=== PATIENT | female | born 1985 | race African-American/Black ===

== ENCOUNTER 2017-08-31 09:11 | Emergency (ER) | payer MEDICARE ==
[~2017-08-31] VITALS: Ht 157.5 cm; Wt 103.0 kg
[~2017-08-31 09:11] MED LIST: ALBU8I INH; ALBUAER3 INH; AZIT250T3 PO; BENZ100 PO; PRED20 PO
[2017-08-31 09:13] VITALS: BP 148/83; PULSE 94; RESP 16; TEMP 98.6; O2SAT 94
[2017-08-31] MEDS ORDERED: SODIUM CHLOR 0.9% 1000 ML INJ 1,000 ML IV ONE (09:30)
[2017-08-31] MEDS ORDERED: methylPREDNISolone SOD SUCC 125 MG/2 ML VIAL IV PUSH ONE (09:30)
[2017-08-31] MEDS ORDERED: SODIUM CHLORIDE 0.9% FLUSH 10 ML FLUSH IVF PRN (09:30)
[2017-08-31 09:33] VITALS: BP 155/85; PULSE 106; RESP 20; TEMP 98.6; O2SAT 97
[2017-08-31 09:36] VITALS: RESP 20; O2SAT 96
--- NOTE | 2017-08-31 09:39 | PD ---
HPI Chief Complaint: Respiratory Distress Time Seen by Provider: 09:28 Travel History International Travel<30 days: No Contact w/Intl Traveler<30days: No Traveled to known affect area: No History of Present Illness HPI Patient is a 31-year-old female presents to emergency room with complaints of asthma exacerbation. Patient reports that that she began wheezing and coughing this weekend. Patient reports that when she coughs, she is bringing up thick phlegm. Patient reports that she has not been having any fevers or chills. Patient reports no sick contacts. Patient reports that changes of weather usually brings on her asthma exacerbation. Patient reports that she has never been intubated for asthma exacerbation, she was hospitalized last year for this. Reports that she tried using nebulizer treatments at home with no relief of symptoms. PFSH Past Medical History Anemia: Yes Asthma: Yes Blood Disorders: No Anxiety: Yes Depression: Yes Cancer: No Cardiovascular Problems: No Chemotherapy: No Diminished Hearing: No Endocrine: No Gastrointestinal Disorders: No Genitourinary: No Immune Disorder: No Musculoskeletal: Yes Neurologic: No Psychiatric: Yes Reproductive: No Respiratory: No Radiation Therapy: No ?: Not : 6 Para: 6 Miscarriage: 0 : 0 Past Surgical History AICD: No Arteriovenous Shunt: No Section: Yes Gynecologic Surgery: Yes (C SECTION) Insulin Pump: No Joint Replacement: No Pacemaker: No Other Surgery: No Social History Alcohol Use: No Tobacco Use: No Substance Use: No Allergies-Medications (Allergen,Severity, Reaction): Coded Allergies: No Known Allergies (Verified , 08/31/17) Reported Meds & Prescriptions Reported Meds & Active Scripts Active Proair Hfa 8.5 GM Inh (Albuterol Sulfate) 90 Mcg/Act Aer 2 Puff INH Q6H PRN 108 mcg/actuation Review of Systems General / Constitutional: No: Fever Eyes: No: Visual changes HENT: No: Headaches Cardiovascular: No: Chest Pain or Discomfort Respiratory: Positive: Cough, Shortness of Breath, Wheezing Gastrointestinal: No: Abdominal Pain Genitourinary: No: Dysuria Musculoskeletal: No: Pain Skin: No Rash Neurologic: No: Weakness Psychiatric: No: Depression Endocrine: No: Polydipsia Hematologic/Lymphatic: No: Easy Bruising Physical Exam Narrative GENERAL: mild distress SKIN: Focused skin assessment warm/dry. HEAD: Atraumatic. Normocephalic. EYES: Pupils equal and round. No scleral icterus. No injection or drainage. ENT: No nasal bleeding or discharge. Mucous membranes pink and moist. NECK: Trachea midline. No JVD. CARDIOVASCULAR: Regular rate and rhythm. No murmur appreciated. RESPIRATORY: No accessory muscle use. patient with scattered wheezing diffusely GASTROINTESTINAL: Abdomen soft, non-tender, nondistended. Hepatic and splenic margins not palpable. MUSCULOSKELETAL: No obvious deformities. No clubbing. No cyanosis. No edema. NEUROLOGICAL: Awake and alert. No obvious cranial nerve deficits. Motor grossly within normal limits. Normal speech. PSYCHIATRIC: Appropriate mood and affect; insight and judgment normal. Data Data Last Documented VS Vital Signs Date Time Temp Pulse Resp B/P (MAP) Pulse Ox O2 Delivery O2 Flow Rate FiO2 08/31/17 10:03 98 128/82 (97) 08/31/17 09:38 96 Room Air 08/31/17 09:36 20 08/31/17 09:33 98.6 Orders Orders Basic Metabolic Panel (Bmp) (08/31/17 09:30) Complete Blood Count With Diff (08/31/17 09:30) Chest, Single Ap (08/31/17 09:30) Ecg Monitoring (08/31/17 09:30) Iv Access Insert/Monitor (08/31/17 09:30) Oximetry (08/31/17 09:30) Methylprednisolone So Succ Inj (Solumedr (08/31/17 09:30) Albuterol-Ipratropium Neb (Duoneb Neb) (08/31/17 09:30) Sodium Chloride 0.9% Flush (Ns Flush) (08/31/17 09:30) Ed Urine Pregnancytest Poc (08/31/17 09:30) Sodium Chlor 0.9% 1000 Ml Inj (Ns 1000 M (08/31/17 09:30) Magnesium Sulfate 1 Gm Premix (Magnesium (08/31/17 09:30) Electrocardiogram (08/31/17 ) Labs Laboratory Tests Test 08/31/17 09:58 White Blood Count 5.8 TH/MM3 Red Blood Count 4.15 MIL/MM3 Hemoglobin 12.7 GM/DL Hematocrit 37.7 % Mean Corpuscular Volume 90.9 FL Mean Corpuscular Hemoglobin 30.7 PG Mean Corpuscular Hemoglobin Concent 33.7 % Red Cell Distribution Width 13.3 % Platelet Count 305 TH/MM3 Mean Platelet Volume 7.6 FL Neutrophils (%) (Auto) 56.0 % Lymphocytes (%) (Auto) 23.9 % Monocytes (%) (Auto) 7.2 % Eosinophils (%) (Auto) 12.2 % Basophils (%) (Auto) 0.7 % Neutrophils # (Auto) 3.3 TH/MM3 Lymphocytes # (Auto) 1.4 TH/MM3 Monocytes # (Auto) 0.4 TH/MM3 Eosinophils # (Auto) 0.7 TH/MM3 Basophils # (Auto) 0.0 TH/MM3 CBC Comment DIFF FINAL Differential Comment Blood Urea Nitrogen 13 MG/DL Creatinine 0.74 MG/DL Random Glucose 92 MG/DL Calcium Level 9.0 MG/DL Sodium Level 139 MEQ/L Potassium Level 4.3 MEQ/L Chloride Level 107 MEQ/L Carbon Dioxide Level 24.5 MEQ/L Anion Gap 8 MEQ/L Estimat Glomerular Filtration Rate 111 ML/MIN [facility] Medical Decision Making Medical Screen Exam Complete: Yes Emergency Medical Condition: Yes Medical Record Reviewed: Yes Interpretation(s) EKG at 1004: NSR at 96bpm, qt/qtc: 336/389, no acute st or t wave changes Vital Signs Date Time Temp Pulse Resp B/P (MAP) Pulse Ox O2 Delivery O2 Flow Rate FiO2 08/31/17 09:33 98.6 106 20 155/85 (108) 97 Room Air 08/31/17 09:30 (104) 08/31/17 09:13 98.6 94 16 148/83 (104) 94 Differential Diagnosis Differential includes asthma exacerbation, pneumonia, pneumothorax Narrative Course 31-year-old female presents to emergency room with complaints of exacerbation of asthma, patient reports that symptoms began this weekend with cough and wheezing. She has tried using albuterol treatments at home with no relief of symptoms. Patient presents to emergency room with diffuse wheezing on exam. Vital Signs Date Time Temp Pulse Resp B/P (MAP) Pulse Ox O2 Delivery O2 Flow Rate FiO2 08/31/17 09:33 98.6 106 20 155/85 (108) 97 Room Air 08/31/17 09:30 (104) 08/31/17 09:13 98.6 94 16 148/83 (104) 94 IV steroids as well as IV magnesium, DuoNeb treatments ordered. X-ray of the chest ordered to evaluate for possible pneumonia vs pneumothorax Vital Signs Date Time Temp Pulse Resp B/P (MAP) Pulse Ox O2 Delivery O2 Flow Rate FiO2 08/31/17 10:03 98 128/82 (97) 08/31/17 09:38 96 Room Air 08/31/17 09:36 20 96 Room Air 08/31/17 09:33 98.6 106 20 155/85 (108) 97 Room Air 08/31/17 09:30 (104) 08/31/17 09:13 98.6 94 16 148/83 (104) 94 Laboratory Tests Test 08/31/17 09:58 White Blood Count 5.8 TH/MM3 (4.0-11.0) Red Blood Count 4.15 MIL/MM3 (4.00-5.30) Hemoglobin 12.7 GM/DL (11.6-15.3) Hematocrit 37.7 % (35.0-46.0) Mean Corpuscular Volume 90.9 FL (80.0-100.0) Mean Corpuscular Hemoglobin 30.7 PG (27.0-34.0) Mean Corpuscular Hemoglobin Concent 33.7 % (32.0-36.0) Red Cell Distribution Width 13.3 % (11.6-17.2) Platelet Count 305 TH/MM3 (150-450) Mean Platelet Volume 7.6 FL (7.0-11.0) Neutrophils (%) (Auto) 56.0 % (16.0-70.0) Lymphocytes (%) (Auto) 23.9 % (9.0-44.0) Monocytes (%) (Auto) 7.2 % (0.0-8.0) Eosinophils (%) (Auto) 12.2 % (0.0-4.0) Basophils (%) (Auto) 0.7 % (0.0-2.0) Neutrophils # (Auto) 3.3 TH/MM3 (1.8-7.7) Lymphocytes # (Auto) 1.4 TH/MM3 (1.0-4.8) Monocytes # (Auto) 0.4 TH/MM3 (0-0.9) Eosinophils # (Auto) 0.7 TH/MM3 (0-0.4) Basophils # (Auto) 0.0 TH/MM3 (0-0.2) CBC Comment DIFF FINAL Differential Comment Blood Urea Nitrogen 13 MG/DL (7-18) Creatinine 0.74 MG/DL (0.50-1.00) Random Glucose 92 MG/DL (74-106) Calcium Level 9.0 MG/DL (8.5-10.1) Sodium Level 139 MEQ/L (136-145) Potassium Level 4.3 MEQ/L (3.5-5.1) Chloride Level 107 MEQ/L (98-107) Carbon Dioxide Level 24.5 MEQ/L (21.0-32.0) Anion Gap 8 MEQ/L (5-15) Estimat Glomerular Filtration Rate 111 ML/MIN (>89) Last Impressions Chest X-Ray 08/31/17 0930 Signed Impressions: Service Date/Time: August 09:47 - CONCLUSION: Normal examination for a patient of this age. No significant change has occurred. Tylor Weaver MD Patient re-evaluated, patient feeling much better at this time. Patient with decreased wheezing. Patient with most likely acute bronchitis with asthma exacerbation. Plan for her to follow up with her primary care doctor and return to emergency room as needed. Diagnosis Primary Impression: Asthma exacerbation Additional Impression: Acute bronchitis Patient Instructions: General Instructions Additional Instructions: Please take all medications as prescribed Follow up with your primary care doctor Return to ER as needed or if symptoms worsen or persist Med/Other Pt SpecificInfo: Prescription(s) given Scripts Albuterol 8.5 GM Inh (Proair Hfa 8.5 GM Inh) 90 Mcg/Act Aer 2 PUFF INH Q4-6H Y for SHORTNESS OF BREATH, #1 INHALER 0 Refills 108 mcg/actuation Prov: Kyleigh Mercado DO 08/31/17 Promethazine-Codeine Liq (Promethazine-Codeine Liq) 6.25-10 Mg/5 Ml Syrp 10 ML PO Q6H Y for COUGH AND/OR COLD SYMPTOMS for 7 Days, #280 ML 0 Refills Prov: Kyleigh Mercado DO 08/31/17 Benzonatate (Tessalon Perles) 100 Mg Cap 200 MG PO TID Y for COUGH for 60 Days, #30 CAP 0 Refills Prov: Kyleigh Mercado DO 08/31/17 Prednisone (Prednisone) 20 Mg Tab 20 MG PO BID for 5 Days, #10 TAB 0 Refills Prov: Kyleigh Mercado DO 08/31/17 Azithromycin (Azithromycin) 500 Mg Tab 500 MG PO DAILY for Infection, #5 TAB 0 Refills Prov: Kyleigh Mercado DO 08/31/17 Disposition: 01 DISCHARGE HOME Condition: Stable Kyleigh Mercado DO Aug 31, 2017 09:39
--- NOTE | 2017-08-31 09:52 | RADRPT ---
EXAM DATE/TIME: 08/31/2017 09:47 [facility] COMPARISON: CHEST PA & LAT, September 23, 2016, 8:11. CHEST SINGLE AP, August 10, 2016, 21:57. INDICATIONS : Shortness of breath and wheezing. MEDICAL HISTORY : Asthma. SURGICAL HISTORY : None. ENCOUNTER: Initial ACUITY: 4 - 6 days PAIN SCORE: 0/10 LOCATION: Bilateral chest FINDINGS: A single view of the chest demonstrates the lungs to be symmetrically aerated without evidence of mas s, infiltrate or effusion. The cardiomediastinal contours are unremarkable. Osseous structures are intact. CONCLUSION: Normal examination for a patient of this age. No significant change has occurred. Tylor Weaver MD on August 31, 2017 at 9:50 Board Certified Radiologist. This report was verified electronically.
[2017-08-31] MEDS: MAGNESIUM SULFATE 1 GM PREMIX 100 ML IV SCH ×2 (09:55→11:08)
[2017-08-31 10:03] VITALS: BP 128/82; PULSE 98
[2017-08-31] MEDS: RESP: ALBUTEROL 2.5 MG/IPRATROPIUM 0.5 MG NEB (SCH) INH ×2 (10:03→10:13)
[2017-08-31 10:27] LABS: AUTOMATED NEUTROPHIL # 3.3 TH/MM3 (1.8-7.7); BASOPHIL % 0.7 % (0.0-2.0); EOSINOPHIL # 0.7 TH/MM3 (0-0.4); EOSINOPHIL % 12.2 % (0.0-4.0); HEMATOCRIT 37.7 % (35.0-46.0); HEMO FLAGS DIFF FINAL; LYMPH % 23.9 % (9.0-44.0); LYMPHOCYTE # 1.4 TH/MM3 (1.0-4.8); MEAN CELL VOLUME 90.9 FL (80.0-100.0); MEAN CORPUSCULAR HEMOGLOBIN 30.7 PG (27.0-34.0); MEAN CORPUSCULAR HGB CONC 33.7 % (32.0-36.0); MONO % 7.2 % (0.0-8.0); PLATELET COUNT 305 TH/MM3 (150-450); RED BLOOD COUNT 4.15 MIL/MM3 (4.00-5.30); RED CELL DISTRIBUTION WIDTH 13.3 % (11.6-17.2); WHITE BLOOD COUNT 5.8 TH/MM3 (4.0-11.0)
[2017-08-31 10:50] LABS: BICARBONATE 24.5 MEQ/L (21.0-32.0); POTASSIUM 4.3 MEQ/L (3.5-5.1)
[2017-08-31] MEDS ORDERED: PRED20 PO (11:39)
[2017-08-31] MEDS ORDERED: AZIT500T2 PO (11:39)
[2017-08-31] MEDS ORDERED: PROM6.256 PO (11:39)
[2017-08-31] MEDS ORDERED: BENZ100 PO (11:39)
[2017-08-31] MEDS ORDERED: ALBUAER3 INH (11:39)
[2017-08-31 12:24] VITALS: BP 137/81; PULSE 90
--- NOTE | 2017-08-31 21:40 | EKG ---
Date Performed: 08/31/2017 Time Performed: 10:04:00 PTAGE: 31 years EKG: Sinus rhythm NORMAL ECG PREVIOUS TRACING : 04/15/2012 17.32 Compared to prior tracing no significant change DOCTOR: Bolivar Kitchen Interpretating Date/Time 08/31/2017 21:38:08
== END 2017-08-31 12:25 | disposition home or self-care (01) ==
LOC: NEPC 09:11
DX: J45.901 Unspecified asthma with (acute) exacerbation (principal); J20.9 Acute bronchitis, unspecified; D64.9 Anemia, unspecified; R06.2 Wheezing
CPT/HCPCS: 71010; 80048; 85025; 93005; 94640; 94664; 96365; 96366; 96375; 99285; J2930; J3475; J7030

== ENCOUNTER → 2017-10-03 | Outpatient (CLI) | payer MEDICARE ==
[~2017-10-03] MED LIST changes: -ALBU8I INH; -AZIT250T3 PO; +AZIT500T2 PO; +PROM6.256 PO
[2017-10-03 09:33] LABS: AUTOMATED NEUTROPHIL # 3.8 TH/MM3 (1.8-7.7); BASOPHIL % 0.6 % (0.0-2.0); EOSINOPHIL # 0.2 TH/MM3 (0-0.4); EOSINOPHIL % 4.3 % (0.0-4.0); HEMATOCRIT 37.8 % (35.0-46.0); HEMO FLAGS DIFF FINAL; LYMPH % 18.9 % (9.0-44.0); MEAN CELL VOLUME 91.8 FL (80.0-100.0); MEAN CORPUSCULAR HEMOGLOBIN 30.2 PG (27.0-34.0); MEAN CORPUSCULAR HGB CONC 32.9 % (32.0-36.0); MONO % 6.5 % (0.0-8.0); NEUT % 69.7 % (16.0-70.0); PLATELET COUNT 283 TH/MM3 (150-450); RED BLOOD COUNT 4.11 MIL/MM3 (4.00-5.30); RED CELL DISTRIBUTION WIDTH 13.6 % (11.6-17.2); WHITE BLOOD COUNT 5.5 TH/MM3 (4.0-11.0)
[2017-10-03 10:02] LABS: MICRO ALBUMIN RANDOM URINE RAW 22.4 MG/L (0.0-30.0)
[2017-10-03 10:23] LABS: ALT (GPT) 37 U/L (10-53); ANION GAP 7 MEQ/L (5-15); AST (GOT) 24 U/L (15-37); BICARBONATE 28.6 MEQ/L (21.0-32.0); BLOOD UREA NITROGEN 16 MG/DL (7-18); CHLORIDE 105 MEQ/L (98-107); GLOMERULAR FILTRATION RATE 98 ML/MIN (>89); GLUCOSE,FASTING 90 MG/DL (74-99); POTASSIUM 3.9 MEQ/L (3.5-5.1); SODIUM (NA) 141 MEQ/L (136-145)
[2017-10-03 10:32] LABS: ALKALINE PHOSPHATASE 67 U/L (45-117); FREE T3 2.87 PG/ML (2.18-3.98); FREE T4 0.91 NG/DL (0.76-1.46); LDL CHOLESTEROL 105 MG/DL (0-99); TOTAL BILIRUBIN ADULT 0.5 MG/DL (0.2-1.0)
== END ==
LOC: CLAB 08:43
PROVIDERS: ATTEND Family Medicine
DX: E78.00 Pure hypercholesterolemia, unspecified (principal); E03.9 Hypothyroidism, unspecified; E11.9 Type 2 diabetes mellitus without complications; R53.83 Other fatigue; D64.9 Anemia, unspecified; E55.9 Vitamin D deficiency, unspecified; Z13.0 Encounter for screening for diseases of the blood and blood-forming organs and certain disorders involving the immune mechanism
CPT/HCPCS: 36415; 80053; 80061; 82043; 82306; 84439; 84443; 84481; 85025

== ENCOUNTER → 2018-02-14 | Outpatient (CLI) | payer MEDICARE, OTHER ==
[2018-02-14 10:38] LABS: ALBUMIN 3.6 GM/DL (3.4-5.0); AST (GOT) 26 U/L (15-37); BICARBONATE 27.7 MEQ/L (21.0-32.0); BLOOD UREA NITROGEN 15 MG/DL (7-18); CHLORIDE 105 MEQ/L (98-107); CREATININE 0.85 MG/DL (0.50-1.00); GLOMERULAR FILTRATION RATE 94 ML/MIN (>89); GLUCOSE,FASTING 90 MG/DL (74-99); SODIUM (NA) 139 MEQ/L (136-145)
[2018-02-14 10:39] LABS: CHOLESTEROL 165 MG/DL (120-200)
[2018-02-14 10:42] LABS: ALKALINE PHOSPHATASE 67 U/L (45-117); ALT (GPT) 33 U/L (10-53); CHOLESTEROL/ HDL RATIO 3.24 RATIO; HDL CHOLESTEROL 50.8 MG/DL (40.0-60.0); LDL CHOLESTEROL 82 MG/DL (0-99); TOTAL BILIRUBIN ADULT 0.4 MG/DL (0.2-1.0); TOTAL PROTEIN 7.4 GM/DL (6.4-8.2); TRIGLYCERIDES 159 MG/DL (42-150)
== END ==
LOC: CLAB 09:39
PROVIDERS: ATTEND Family Medicine
DX: E78.1 Pure hyperglyceridemia (principal); E78.00 Pure hypercholesterolemia, unspecified
CPT/HCPCS: 36415; 80053; 80061